=== PATIENT | female | born 1990 | race African-American/Black ===

== ENCOUNTER 2025-02-06 00:33 | Emergency (ER) | payer MEDICAID ==
[~2025-02-06] VITALS: Ht 162.6 cm; Wt 124.3 kg
[2025-02-06 00:47] VITALS: O2SAT 100
[2025-02-06 01:13] LABS: BASOPHILS % 1.2 % (0.0-2.0); EOSINOPHILS % 4.1 % (0.0-5.0); HEMATOCRIT. 36.3 % (36.0-48.0); HEMOGLOBIN. 11.4 g/dL (12.0-16.0); LYMPHOCYTES % 41.8 % (20.0-50.0); MEAN PLATELET VOLUME 8.8 fl (7.4-10.4); MONOCYTES % 7.3 % (2.0-8.0); NEUTROPHILS % 45.6 % (40.0-76.0); PLATELET 300 x1000/uL (130-400); RED BLOOD CELL COUNT 4.98 mill/uL (4.2-5.4); RED CELL DISTRIBUTION WIDTH 15.5 % (11.6-14.6)
[2025-02-06 01:24] LABS: CLARITY URINE CLEAR (CLEAR); COLOR URINE YELLOW (YELLOW); GLUCOSE URINE NEGATIVE (NEGATIVE); KETONES URINE NEGATIVE (NEGATIVE); LEUKOCYTE ESTERASE URINE NEGATIVE (NEGATIVE); NITRITE URINE NEGATIVE (NEGATIVE); OCCULT BLOOD URINE NEGATIVE (NEGATIVE); PH URINE 5.5 (4.5-8.0); PROTEIN URINE NEGATIVE (NEGATIVE); SPECIFIC GRAVITY URINE 1.022 (1.005-1.030); UROBILINOGEN URINE 1.0 E.U./dL (0.2-1.0)
[2025-02-06 01:35] LABS: CREATININE 0.8 mg/dL (0.6-1.0)
[2025-02-06 01:36] LABS: UREA NITROGEN BLOOD 9 mg/dL (9-23)
[2025-02-06 01:37] LABS: ASPARTATE AMINOTRANSFERASE 16 IU/L (<34)
[2025-02-06 01:38] LABS: BILIRUBIN DIRECT < 0.1 mg/dL (<=3.0); BILIRUBIN TOTAL 0.3 mg/dL (0.1-1.0); PROTEIN TOTAL 6.6 g/dL (6.0-8.3)
[2025-02-06 02:07] LABS: HCG SCREEN NEGATIVE
[2025-02-06] MEDS: KETOROLAC 15MG/ML VIAL IV SCH (02:46)
[2025-02-06] MEDS: SODIUM CHLORIDE 0.9% 1,000 ML IV ONE (02:47)
[2025-02-06] MEDS ORDERED: IOHEXOL-300 100 ML BOTTLE ONE (04:12)
[2025-02-06] MEDS ORDERED: CEPH500C2 MT (04:33)
[2025-02-06] MEDS ORDERED: FLUC100T MT (04:33)
[2025-02-06 04:44] VITALS: BP 110/69; PULSE 73; RESP 14; TEMP 36.8; O2SAT 100
[2025-02-06] MEDS: CEPHALEXIN 250MG CAPSULE PO ONE (04:49)
[2025-02-06 10:02] LABS: *AMPHETAMINES SCREEN URINE NEGATIVE (NEGATIVE); *BARBITURATES SCREEN URINE NEGATIVE (NEGATIVE); *BENZODIAZEPINES SCREEN URINE NEGATIVE (NEGATIVE); *COCAINE SCREEN URINE NEGATIVE (NEGATIVE)
[2025-02-06 10:03] LABS: CANNABINOID URINE SCREEN PRESUMPTIVE POSITIVE (NEGATIVE); METHADONE URINE SCREEN NEGATIVE (NEGATIVE); OPIATES URINE SCREEN NEGATIVE (NEGATIVE); PHENCYCLIDINE URINE SCREEN NEGATIVE (NEGATIVE)
[2025-02-06 10:24] LABS: ECSTASY MDMA SCREEN URINE NEGATIVE (NEGATIVE)
== END 2025-02-06 04:58 | disposition home or self-care (01) ==
LOC: ER 00:33
DX: L73.9 Follicular disorder, unspecified (principal); J45.909 Unspecified asthma, uncomplicated; Z90.89 Acquired absence of other organs; Z79.899 Other long term (current) drug therapy; Z98.890 Other specified postprocedural states
CPT/HCPCS: 80076; 80305; 80048; 81025; 81003; 84703; 83605; 85025; 87040; 36415; 84145; 74177; 96361; 96374; 99285; Q9967; J1885; J7030; Z7610